=== PATIENT | female | born 1995 | race African-American/Black ===

== ENCOUNTER 2017-03-28 13:46 | Emergency (ER) | payer OTHER ==
[2017-03-28] MEDS ORDERED: IBUPROFEN 600 MG TABLET PO ONE (15:53)
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
[2017-03-28 16:57] VITALS: BP 104/68
== END 2017-03-28 16:57 | disposition home or self-care (01) ==
LOC: ER 13:46
DX: S39.012A Strain of muscle, fascia and tendon of lower back, initial encounter (principal); V87.7XXA Person injured in collision between other specified motor vehicles (traffic), initial encounter
CPT/HCPCS: 72110; 99283

== ENCOUNTER 2019-07-13 10:26 | Emergency (ER) | payer OTHER ==
[2019-07-13] MEDS ORDERED: LIDOCAINE 2% INJ (20 MG/ML) 20 ML MDV INJ ONE (12:07)
--- NOTE | 2019-07-13 12:58 | ER Document Report ---
ED General - General Chief Complaint: Vaginal Pain Stated Complaint: VAGINAL PAIN Time Seen by Provider: 07/13/19 11:15 Notes: 24-year-old female presents to the emergency department with a 3-day history of right inguinal/vaginal pain. Apparently seen at her primary care doctor's office this morning and referred to the emergency department with possible Bartholin cyst. Patient was told that she would need to have a catheter placed. She denies a history of diabetes mellitus or history of prior difficulty with Bartholin cyst infection. TRAVEL OUTSIDE OF THE [place] IN LAST 30 DAYS: No - Related Data Allergies/Adverse Reactions: No Known Allergies Allergy (Unverified 06/26/11 18:27) Past Medical History - Social History Smoking Status: Never Smoker Frequency of alcohol use: None Drug Abuse: None Family History: Reviewed & Not Pertinent Patient has homicidal ideation: No Pulmonary Medical History: Reports: Hx Asthma Renal/ Medical History: Reports: Hx Peritoneal Dialysis Past Surgical History: Reports: Hx Orthopedic Surgery - knee surgery, Hx Tonsillectomy - and adenoids - Immunizations Hx Diphtheria, Pertussis, Tetanus Vaccination: Yes Review of Systems - Review of Systems Notes: Constitutional: Negative for fever. HENT: Negative for sore throat. Eyes: Negative for visual changes. Cardiovascular: Negative for chest pain. Respiratory: Negative for shortness of breath. Gastrointestinal: Negative for abdominal pain, vomiting or diarrhea. Genitourinary: +left labia swelling Musculoskeletal: Negative for back pain. Skin: Negative for rash. Neurological: Negative for headaches, weakness or numbness. 10 point ROS negative except as marked above and in HPI. Physical Exam - Vital signs Vitals: Temp Pulse Resp BP Pulse Ox 98.6 F 69 18 121/74 100 07/13/19 10:30 07/13/19 10:30 07/13/19 10:30 07/13/19 10:30 07/13/19 10:30 - Notes Notes: Physical Exam: General: Well-nourished well-developed in no acute distress HEENT: NC/AT, pupils equal round and reactive to light, MM moist,nares clear, oropharynx clear, airway patent Neck: supple, no adenopathy, no masses. Good range of motion Lungs: clear, no wheezing, no rales no rhonchi CVS: Regular rate and rhythm no murmur gallop or rub Abdomen: Soft, active, nontender, no masses, no hepatosplenomegaly Ext: No edema, clubbing or cyanosis. : +swelling of the left labia with tenderness, left inguinal swelling /abscess, markedly tenderness Neuro: Alert and responsive, moving all 4 extremities on command, cranial nerves intact, no focal findings Skin: Intact no open lesions, no rash PSYCH: Normal mood, normal affect. Course - Vital Signs Vital signs: Temp Pulse Resp BP Pulse Ox 98.6 F 69 18 121/74 100 07/13/19 10:30 07/13/19 10:30 07/13/19 10:30 07/13/19 10:30 07/13/19 10:30 Procedures - Incision and Drainage Left Groin Time completed: 13:00 Type: Simple Anesthetic type: 2% Lidocaine mL's of anesthetic: 7 Blade size: 11 I&D procedure: Betadine prep applied Incision Method: Incision made by scalpel Amount/type of drainage: 12 Notes: 07/13/19 13:11 Area in the left inguinal region, abscess, prepped Betadine, sterile drapes, sterile gloves 8-1/2 2% lidocaine infiltrated around into the wound. Incision with a 11 scalpel, large copious mucopurulent material/pus approximately 12 to 15 mL drained from the wound. A straight hemostat was used to probe the wound and break up adhesions. The wound was packed with quarter inch iodoform gauze approximately 12 inches. Patient tolerated the procedure well. Discharge - Discharge Clinical Impression: Abscess of groin, left, Swelling of labia Condition: Good Disposition: HOME, SELF-CARE Instructions: Abscess ([facility]), Trimethoprim-Sulfa ([facility]), Post Incision and Drainage Additional Instructions: You were treated in the emergency department for a inguinal/groin abscess. The area was incised and drained, a culture was obtained and packing was placed within the incision site. Please return to the emergency department and 48 hours for packing removal. Please take the antibiotics and medications for pain as needed. You may supplement Tylenol with the prescription pain medication. If you develop fever or other concerns you may return to the emergency department for further evaluation and treatment. HOME CARE INSTRUCTIONS & INFORMATION: Thank you for choosing us for your medical needs. We hope you're satisfied with the care you received. After you leave, you must properly care for your problem and, at the same time, observe its progress. Any condition can change. Some illnesses can change rapidly over hours or days. If your condition worsens, return to the Emergency Department or see your physician promptly. ABOUT YOUR X-RAYS AND EKG'S: If you had an EKG or X-rays taken, they have been read by the Emergency Physician. The X-rays and EKG's will also be read by a Radiologist or Inspector Scales within 24 hours. If discrepancies are noted, you will be notified by telephone. Please be certain the ED has a correct telephone number & address where you can be reached. Also, realize that some fractures or abnormalities do not show up on initial X-rays. If your symptoms continue, see your physician. ABOUT YOUR LABORATORY TEST: If you had laboratory tests, the results have been reviewed by the Emergency Physician. Some test results (for example cultures) may not be available for several days. You will be contacted if any test result shows you need additional treatment. Please be certain the ED has a correct telephone number and address where you can be reached. ABOUT YOUR MEDICATIONS: You will receive instructions on how to take your medicine on the prescription label you receive. Additional information may be provided by the Pharmacy. If you have questions afterwards, call the ED for clarification or further instructions. Some prescribed medications may cause drowsiness. Do not perform tasks such as driving a car or operating machinery without consulting your Pharmacist. If you feel you need a refill of pain medication, your condition will need re-evaluation. Please do not call for a refill of any medication. ABOUT YOUR SIGNATURE: Signature of this document acknowledges to followin. Understanding that you received emergency treatment and that you may be released before al medical problems are known or treated. Please be certain the ED has a correct phone number & address where you can be reached. 2. Acknowledgement that you will arrange for follow-up care as recommended. 3. Authorization for the Emergency Physician to provide information to your follow-up Physician in order to maximize your care. AT ANY TIME, IF YOUR SYMPTOMS CHANGE SIGNIFICANTLY OR WORSEN OR YOU DEVELOP NEW SYMPTOMS, RETURN TO THE EMERGENCY DEPARTMENT IMMEDIATELY FOR RE-EVALUATION. OUR GOAL IS TO PROVIDE EXCELLENT MEDICAL CARE! WE HOPE THAT WE HAVE MET YOUR EXPECTATIONS DURING YOUR EMERGENCY DEPARTMENT VISIT AND THAT YOU FEEL YOU HAVE RECEIVED EXCELLENT CARE! Prescriptions: Sulfamethoxazole/Trimethoprim [Bactrim Ds Tablet] 1 tab PO BID #20 tablet Ibuprofen [Motrin 800 mg Tablet] 800 mg PO Q8H PRN #30 tab PRN Reason:
[2019-07-13] MEDS ORDERED: CLINDAMYCIN PHOSPHATE INJ 300 MG/2 ML SDV IV ONE (13:09)
[2019-07-13] MEDS ORDERED: KETOROLAC TROMETHAMINE INJ/PF 30 MG/1 ML SDV IV ONE (13:18)
[2019-07-13] MEDS ORDERED: CLINDAMYCIN 600 MG/D5W RTU 600 MG/50 ML RTUPB IV ONE (13:20)
[2019-07-13 14:49] VITALS: BP 120/70
== END 2019-07-13 14:48 | disposition home or self-care (01) ==
LOC: ER 10:26
DX: L02.214 Cutaneous abscess of groin (principal); R22.2 Localized swelling, mass and lump, trunk; R10.2 Pelvic and perineal pain
CPT/HCPCS: 99283; 96375; 96365; 87040; 87070; 87205; 87075; 87077; 10060; J3490 ×2; J1885; 87186

== ENCOUNTER 2019-07-15 15:38 | Emergency (ER) | payer SELFPAY ==
[2019-07-15 15:42] VITALS: BP 126/76
--- NOTE | 2019-07-15 15:54 | ER Document Report ---
HPI - HPI Patient complains to provider of: Wound recheck Time Seen by Provider: 07/15/19 15:42 Pain Level: 2 Context: Patient presents for wound recheck to a labial abscess that had an incision and drainage procedure 2 days ago. Patient states she has been compliant with taking the medications. Patient is here to have her packing removed. Associated Symptoms: denies: Fever Exacerbated by: Movement Relieved by: Denies Similar symptoms previously: No Recently seen / treated by doctor: Yes - ROS ROS below otherwise negative: Yes Systems Reviewed and Negative: Yes All other systems reviewed and negative - CONSTITUTIONAL Constitutional: DENIES: Fever, Chills - GASTROINTESTINAL Gastrointestinal: DENIES: Nausea, Patient vomiting - REPRODUCTIVE Reproductive: DENIES: : - MUSCULOSKELETAL Musculoskeletal: REPORTS: Extremity pain - DERM Skin Color: Normal Notes: Abscess with packing in place Past Medical History - General Information source: Patient - Social History Smoking Status: Never Smoker Frequency of alcohol use: None Drug Abuse: None Family History: Reviewed & Not Pertinent Patient has homicidal ideation: No Pulmonary Medical History: Reports: Hx Asthma Renal/ Medical History: Reports: Hx Peritoneal Dialysis Past Surgical History: Reports: Hx Orthopedic Surgery - knee surgery, Hx Tonsillectomy - and adenoids - Immunizations Hx Diphtheria, Pertussis, Tetanus Vaccination: Yes Vertical Provider Document - CONSTITUTIONAL Agree With Documented VS: Yes Exam Limitations: No Limitations General Appearance: WD/WN, No Apparent Distress - INFECTION CONTROL TRAVEL OUTSIDE OF THE [place] IN LAST 30 DAYS: No - HEENT HEENT: Atraumatic, Normocephalic - NECK Neck: Normal Inspection - RESPIRATORY Respiratory: Breath Sounds Normal, No Respiratory Distress - CARDIOVASCULAR Cardiovascular: Regular Rate, Regular Rhythm - MUSCULOSKELETAL/EXTREMETIES Musculoskeletal/Extremeties: MAEW - NEURO Level of Consciousness: Awake, Alert, Appropriate Motor/Sensory: No Motor Deficit - DERM Integumentary: Warm, Dry, Abscess - Abscess to left labia, surrounding skin indurated, no surrounding erythema. Packing removed with gentle traction, patient tolerated well. Course - Re-evaluation Re-evalutation: 07/15/19 16:23 Discussed wound care with patient. Discussed worsening signs or symptoms that patient should return immediately for. Patient verbalized understanding and is agreeable with discharge plan of care. - Vital Signs Vital signs: Temp Pulse Resp BP Pulse Ox 98 F 76 14 126/76 H 100 07/15/19 15:42 07/15/19 15:41 07/15/19 15:41 07/15/19 15:41 07/15/19 15:41 Discharge - Discharge Clinical Impression: Encounter for wound re-check Condition: Stable Disposition: HOME, SELF-CARE Instructions: Abscess ([facility]), Antibiotic Therapy ([facility]), Warm Packs ([facility]) Additional Instructions: Return immediately for any new or worsening symptoms Followup with your primary care provider, call tomorrow to make a followup appointment Continue antibiotics as previously prescribed Referrals: [facility] [Provider Group] - Follow up as needed
== END 2019-07-15 16:45 | disposition home or self-care (01) ==
LOC: ER 15:38
DX: Z48.01 Encounter for change or removal of surgical wound dressing (principal); N76.4 Abscess of vulva; J45.909 Unspecified asthma, uncomplicated
CPT/HCPCS: 99282